=== PATIENT | male | born 1960 | race Caucasian/White ===

== ENCOUNTER 2021-08-19 14:58 | Outpatient (CLI) | payer MEDICARE, SELFPAY ==
[2021-08-19 15:50] LABS: Anion Gap 16.2 (5-19); Blood Urea Nitrogen 33 mg/dL (8-23); Calcium 8.7 mg/dL (8.5-10.5); Carbon Dioxide 26 mmol/L (22-29); Chloride 92 mmol/L (98-107); Glomerular Filtration Rate 38.7 mL/min (90-130); Glucose 293 mg/dL (65-115); Osmolality Calculated 288 mOsm/kg (285-295); Potassium 4.2 mmol/L (3.5-5.1); Sodium 130 mmol/L (136-145)
== END 2021-08-19 14:59 | disposition home or self-care (01) ==
PROVIDERS: Visit Provider Community Health Worker
DX: N18.30 Chronic kidney disease, stage 3 unspecified (principal)
CPT/HCPCS: 80048

== ENCOUNTER → 2023-02-26 07:51 | Outpatient (BNVA) | payer MEDICARE, SELFPAY | PROVIDERS: Visit Provider Podiatrist Foot & Ankle Surgery | DX: L60.3 Nail dystrophy (principal); E11.42 Type 2 diabetes mellitus with diabetic polyneuropathy; Z79.4 Long term (current) use of insulin; L97.511 Non-pressure chronic ulcer of other part of right foot limited to breakdown of skin; E11.621 Type 2 diabetes mellitus with foot ulcer | CPT/HCPCS: 11721; 99203 ==

== ENCOUNTER 2023-05-25 00:54 | Emergency (ER) | payer MEDICARE, SELFPAY ==
[2023-05-25 00:57] VITALS: BP 125/60; PULSE 56; RESP 16; TEMP 36.4; O2SAT 100; BMI 39.8
--- NOTE | 2023-05-25 01:03 | ECG_ITS ---
[facility] Test Date: 2023-05-25 Pat Name: Olvin Conrad Department: Room: Gender: Male Merchandising Director: : 1960 Requested By: Candido Soto Order Number: [id number] Donte MD: Cecelia Olson M.D. Measurements Intervals [place] Rate: 52 P: 50 SD: 214 QRS: 12 QRSD: 103 T: 34 QT: 447 QTc: 418 Interpretive Statements SINUS BRADYCARDIA WITH FIRST DEGREE AV BLOCK Compared to ECG 07/28/2015 01:16:52 First degree AV block now present Sinus rhythm no longer present Intraventricular conduction delay no longer present Left ventricular hypertrophy no longer present Electronically Signed On 05-25-2023 16:31:07 STATE DIRECTOR by Cecelia Olson M.D. [id number]
--- NOTE | 2023-05-25 01:09 | XRR_ITS ---
PROCEDURE INFORMATION: Exam: XR Chest Exam date and time: 05/25/2023 1:24 AM Age: 62 years old Clinical indication: Other: HTN; Additional info: Neuro symptoms, HTN TECHNIQUE: Imaging protocol: Radiologic exam of the chest. Views: 1 view. COMPARISON: No relevant prior studies available. FINDINGS: Lungs: Unremarkable. No consolidation. Pleural spaces: Unremarkable. No pleural effusion. No pneumothorax. Heart/Mediastinum: The heart size is not well assessed. Bones/joints: Unremarkable. XR/XR chest 1V portable [id number] IMPRESSION: No acute findings.
--- NOTE | 2023-05-25 01:09 | CTR_ITS ---
PROCEDURE INFORMATION: Exam: CT Head Without Contrast Exam date and time: 05/25/2023 1:17 AM Age: 62 years old Clinical indication: Weakness, extremity and weakness, facial; Left; Additional info: Left side facial and arm/hand numbness TECHNIQUE: Imaging protocol: Computed tomography of the head without contrast. Radiation optimization: All CT scans at this facility use at least one of these dose optimization techniques: automated exposure control; mA and/or kV adjustment per patient size (includes targeted exams where dose is matched to clinical indication); or iterative reconstruction. COMPARISON: No relevant prior studies available. RADIATION DOSE METRICS: Total DLP (mGy-cm): 1144.78 FINDINGS: Brain: Mildly scattered periventricular white matter hypodensities are identified. There is no evidence of acute parenchymal hemorrhage, extra-axial collection, or acute infarction. There is no mass effect, midline shift, or downward herniation. Cerebral ventricles: No ventriculomegaly. Paranasal sinuses: There is [id number] paranasal sinus disease. Mastoid air cells: Visualized mastoid air cells are well aerated. Orbital cavities: There is dislocation of the left lens of unknown chronicity. Bones/joints: Unremarkable. No acute fracture. Soft tissues: Unremarkable. CT/CT head wo con* [id number] IMPRESSION: 1. No evidence of acute intracranial process. 2. Mildly scattered white matter hypodensities. Differential considerations include chronic microvascular ischemic change, demyelinating disease, or gliosis from infectious/inflammatory source. 3. Dislocated left lens of unknown chronicity.
[2023-05-25 01:22] LABS: Basophils % 0.8 %; Eosinophils # 0.2 10^3/uL (0.0-0.8); Eosinophils % 4.4 %; Hematocrit 37.9 % (37-53); Lymphocytes # 0.6 10^3/uL (0.8-4.8); Mean Corpuscular Hemoglobin 28.5 pg (27-33); Mean Corpuscular Volume 86.3 fl (82-101); Monocytes # 0.5 10^3/uL (0.2-0.9); Neutrophils # 3.63 10^3/uL (1.8-7.7); Neutrophils % 72.4 %; Nucleated Red Blood Cells % 0 %; Platelet Count 233 10^3/cmm (157-399); Red Blood Count 4.39 10^6/uL (3.85-5.65); White Blood Count 5.01 10^3/uL (3.29-11.43)
--- NOTE | 2023-05-25 01:39 | ED_ITS ---
HPI - Neuro Symptoms/Deficit 2 General: Chief Complaint: Neuro Symptoms/Deficit Stated Complaint: possible stroke Time Seen by Provider: 05/25/23 01:10 History of Present Illness: Presents to the ER by private vehicle with complaints of worsened left-sided facial numbness that radiates down into his left arm and left hand and upper part of his left lateral chest wall. Patient said some these areas are normally numb and have been numb for 15 years since a botched dental extraction he has seen neurologist and had [facility] surgery for these. But when he gets the worst he comes in to be evaluated for potential stroke. Patient says he is been over at [facility] probably 10 or 15 times for the exact same thing and they usually states inflammation and tell him to go home and take a couple aspirin. Patient stated the numbness worsened around 4 PM today. Patient is on blood thinners. Patient has no localizing weakness. Patient says this is exactly the same as it has been multiple times in the past when has worsened. Review of Systems 2 General: Reports: 10 or more systems reviewed and unremarkable except in HPI and below Physical Exam 2 Const: COMMON NORMALS: no acute distress, average body habitus, patient oriented x3, no limitations, healthy appearing, alert and well nourished HENMT: COMMON NORMALS: normocephalic, atraumatic, hearing grossly normal bilaterally, external ears normal, Normal external nose present and moist oral mucous membranes HEAD & SCALP: normocephalic and atraumatic NOSE: Normal external nose present EXTERNAL EAR: Yes external ears normal Eye: OTHER: Patient is blind in his left eye Neck/C-Spine: COMMON NORMALS: full ROM, no lymphadenopathy, supple, no meningeal signs, no JVD and Thyroid normal THYROID: Thyroid normal Chest: COMMONS NORMALS: normal inspection of the chest and normal palpation of entire chest wall Resp: COMMON NORMALS: normal respiratory effort, No retractions, No use of accessory muscles and clear to auscultation bilaterally AUSCULTATION: clear to auscultation bilaterally Cardio: COMMON NORMALS: no JVD, regular rate, regular rhythm, S1 normal heart sound present, S2 normal heart sound present, No gallops present (Cardio), No clicks present (Cardio), No murmurs present (Cardio) and No rub (Cardio) R ATE: regular rate RHYTHM: regular rhythm HEART SOUNDS: S1 normal heart sound present and S2 normal heart sound present GI: COMMON NORMALS: Normal to inspection, nondistended, normoactive bowel sounds present, Soft to palpation, non-tender, No hepatosplenomegaly present and no masses PALPATION: Yes Soft to palpation and Yes No hepatosplenomegaly present Neuro: COMMON NORMALS: patient oriented x3 SENSORIUM/ORIENTATION: Yes alert MENINGEAL SIGNS: Yes no meningeal signs Course 2 Vital Signs: Vital signs: Vital Signs Temperature 97.6 F 05/25/23 00:57 Pulse Rate 56 L 05/25/23 00:57 Respiratory Rate 16 05/25/23 00:57 Blood Pressure 125/60 05/25/23 00:57 Pulse Oximetry 100 05/25/23 00:57 Oxygen Delivery Me thod Room Air 05/25/23 00:57 MDM - Neuro Symptoms/Deficit Medical Decision Making Patient presents to the ER with complaints of worsening left facial left upper extremity and left chest numbness. Patient was worked up in a strokelike fashion. Patient BUN/creatinine was elevated at 32 and 1.8 but this is chronic for him. Chest x-ray and head CT was negative for acute intracranial process and neck no acute findings. Patient will be discharged home with diagnosis of paresthesias. Patient should follow-up with his PCP and/or neurologist within next 7 to 10 days or return to the ER if things worsen Differential Diagnosis Unlikely carpal tunnel syndrome, convulsions, delirium, subarachnoid hemorrhage, peripheral neuropathy, cerebrovascular accident, multiple sclerosis or transient cerebral ischemia Medical Records I reviewed the patient's medical records. Lab Data I reviewed the patient's lab results. 05/25/23 01:15 05/25/23 01:15 Radiology Impressions Chest X-Ray 05/25/23 01:09 IMPRESSION: No acute findings. Head CT 05/25/23 01:09 IMPRESSION: 1. No evidence of acute intracranial process. 2. Mildly scattered white matter hypodensities. Differential considerations include chronic microvascular ischemic change, demyelinating disease, or gliosis from infectious/inflammatory source. 3. Dislocated left lens of unknown chronicity. Laboratory Results WBC 5.01 10^3/uL (3.29-11.43) 05/25/23 01:15 RBC 4.39 10^6/uL (3.85-5.65) 05/25/23 01:15 Hgb 12.50 g/dL (11.27-16.99) 05/25/23 01:15 Hct 37.9 % (37-53) 05/25/23 01:15 MCV 86.3 fl (82-101) 05/25/23 01:15 MCH 28.5 pg (27-33) 05/25/23 01:15 MCHC 33.0 g/dL (30-55) 05/25/23 01:15 RDW 13.0 % (12.1-15.1) 05/25/23 01:15 Plt Count 233 10^3/cmm (157-399) 05/25/23 01:15 MPV 9.0 fL (7.4-10.4) 05/25/23 01:15 Neut % (Auto) 72.4 % 05/25/23 01:15 Lymph % (Auto) 12.0 % 05/25/23 01:15 [place] % (Auto) 10.0 % 05/25/23 01:15 Eos % (Auto) 4.4 % 05/25/23 01:15 Baso % (Auto) 0.8 % 05/25/23 01:15 Neut # (Auto) 3.63 10^3/uL (1.8-7.7) 05/25/23 01:15 Lymph # (Auto) 0.6 10^3/uL (0.8-4.8) L 05/25/23 01:15 [place] # (Auto) 0.5 10^3/uL (0.2-0.9) 05/25/23 01:15 Eos # (Auto) 0.2 10^3/uL (0.0-0.8) 05/25/23 01:15 Baso # (Auto) 0.0 10^3/uL (0.0-0.1) 05/25/23 01:15 Nucleated RBC % (auto) 0 % 05/25/23 01:15 Nucleated RBCs # 0.0 /100WBC 05/25/23 01:15 Sodium 138 mmol/L (136-145) 05/25/23 01:15 Potassium 4.5 mmol/L (3.5-5.1) 05/25/23 01:15 Chloride 100 mmol/L (98-107) 05/25/23 01:15 Carbon Dioxide 27 mmol/L (22-29) 05/25/23 01:15 Anion Gap 15.5 (5-19) 05/25/23 01:15 BUN 32 mg/dL (8-23) H 05/25/23 01:15 Creatinine 1.8 mg/dL (0.7-1.2) H 05/25/23 01:15 GFR Calculation 38.4 mL/min (90-130) L 05/25/23 01:15 Glucose 195 mg/dL (65-115) H 05/25/23 01:15 Calculated Osmolality 298 mOsm/kg (285-295) H 05/25/23 01:15 Calcium 9.9 mg/dL (8.5-10.5) 05/25/23 01:15 Magnesium 2.0 mg/dL (1.7-2.3) 05/25/23 01:15 Total Bilirubin 0.3 mg/dL (0.15-1.2) 05/25/23 01:15 AST 16 U/L (0-40) 05/25/23 01:15 ALT 15 U/L (0-41) 05/25/23 01:15 Alkaline Phosphatase 97 U/L (40-130) 05/25/23 01:15 C-Reactive Protein 3.0 mg/L (0.0-4.9) 05/25/23 01:15 NT-Pro-B Natriuret Pep 212 pg/mL (0-125) H 05/25/23 01:15 Total Protein 7.3 g/dL (6.6-8.7) 05/25/23 01:15 Albumin 4.2 g/dL (3.5-5.2) 05/25/23 01:15 Globulin 3.1 g/dL (1.3-4.6) 05/25/23 01:15 TSH 1.89 uIU/mL (0.27-4.20) 05/25/23 01:15 All radiology interpretation(s) finalized by discharge EKG Data EKG 1: I personally reviewed and interpreted this EKG as follows: EKG interpretation date: 05/25/23 EKG interpretation time: 01:03 Prior EKG tracings: not available for review Interpretation: EKG showed ventricular rate 52 beats minute, OR interval 214, QRS duration 103, QTc of 427, sinus bradycardia with first-degree AV block Discharge Plan Discharge Patient Disposition: Home Clinical Impression: Paresthesia Condition: Stable Prescriptions: No Action hydrocodone-acetaminophen 7.5-325 mg tablet PO lisinopril 20 mg tablet PO diltiazem HCl 90 mg tablet PO (DME) pen needle, diabetic [Easy Touch] 31 gauge x 1/4 needle See Rx Instructions .ROUTE .MEDSUPPLY Qty: 100 Rx Instructions: As directed tamsulosin 0.4 mg capsule PO trazodone 50 mg tablet PO gabapentin 300 mg capsule PO glipizide 5 mg tablet PO furosemide 20 mg tablet PO cetirizine 10 mg tablet PO lovastatin 20 mg tablet PO (DME) pen needle, diabetic 31 gauge x 15/64 needle See Rx Instructions .ROUTE .MEDSUPPLY Qty: 100 Rx Instructions: As directed insulin glargine [Lantus Solostar U-100 Insulin] 100 unit/mL (3 mL) insulin pen SUBCUT mupirocin 2 % ointment 1 applic topical BID Qty: 15 0RF Discharge Orders: Discharge ED (Routine); Ordered 05/25/23 Ordered By: Candido Soto Referrals: Zaheer Whitney [Primary Care Provider] - 1 week Patient Instructions: Paresthesia (ED) Activity Restrictions/Additional Instructions: All of your workup for stroke was negative. This is worsening of your normal numbness and tingling. Please follow-up with your family practice physician or neurologist within the next 7 to 10 days for further evaluation and treatment. If this worsens please feel free to return to the ER. Coding Level of Care Code ED Infection Control Preventionist for Edgar Toledo
[2023-05-25 01:50] LABS: Alanine Aminotransferase 15 U/L (0-41); Albumin Level 4.2 g/dL (3.5-5.2); Alkaline Phosphatase 97 U/L (40-130); Anion Gap 15.5 (5-19); Aspartate Amino Transferase 16 U/L (0-40); Blood Urea Nitrogen 32 mg/dL (8-23); Calcium 9.9 mg/dL (8.5-10.5); Carbon Dioxide 27 mmol/L (22-29); Chloride 100 mmol/L (98-107); Globulin 3.1 g/dL (1.3-4.6); Glomerular Filtration Rate 38.4 mL/min (90-130); Glucose 195 mg/dL (65-115); NT Pro B Type Natriuretic Pept 212 pg/mL (0-125); Osmolality Calculated 298 mOsm/kg (285-295); Potassium 4.5 mmol/L (3.5-5.1); Sodium 138 mmol/L (136-145); Thyroid Stimulating Hormone 1.89 uIU/mL (0.27-4.20); Total Bilirubin 0.3 mg/dL (0.15-1.2); Total Protein 7.3 g/dL (6.6-8.7)
[2023-05-25 04:53] VITALS: BP 125/60; PULSE 54; RESP 18; O2SAT 100
== END 2023-05-25 04:54 | disposition home or self-care (01) ==
PROVIDERS: Emergency Provider Emergency Medicine
DX: R20.2 Paresthesia of skin (principal); Z79.4 Long term (current) use of insulin; Z79.84 Long term (current) use of oral hypoglycemic drugs
CPT/HCPCS: 70450; 71045; 80053; 83735; 83880; 84443; 85025; 86140; 93005; 99285

== ENCOUNTER → 2023-06-12 08:01 | Outpatient (BNVA) | payer MEDICARE, SELFPAY | PROVIDERS: Visit Provider Podiatrist Foot & Ankle Surgery | DX: L60.3 Nail dystrophy (principal); E11.42 Type 2 diabetes mellitus with diabetic polyneuropathy; Z79.4 Long term (current) use of insulin | CPT/HCPCS: 11721 ==

== ENCOUNTER → 2023-09-11 10:47 | Outpatient (BNVA) | payer MEDICARE, SELFPAY | PROVIDERS: Visit Provider Podiatrist Foot & Ankle Surgery | DX: L60.3 Nail dystrophy (principal); E11.42 Type 2 diabetes mellitus with diabetic polyneuropathy; Z79.4 Long term (current) use of insulin | CPT/HCPCS: 11721 ==

== ENCOUNTER → 2024-06-03 14:02 | Outpatient (BNVA) | payer MEDICARE, SELFPAY | PROVIDERS: Visit Provider Podiatrist Foot & Ankle Surgery | DX: L60.3 Nail dystrophy (principal); E11.42 Type 2 diabetes mellitus with diabetic polyneuropathy; I73.9 Peripheral vascular disease, unspecified; Z79.4 Long term (current) use of insulin | CPT/HCPCS: 11721 ==

== ENCOUNTER → 2024-08-26 08:03 | Outpatient (BNVA) | payer MEDICARE, SELFPAY | PROVIDERS: Visit Provider Podiatrist Foot & Ankle Surgery | DX: E11.42 Type 2 diabetes mellitus with diabetic polyneuropathy (principal); L60.3 Nail dystrophy; I73.9 Peripheral vascular disease, unspecified; Z79.4 Long term (current) use of insulin | CPT/HCPCS: 11721 ==

== ENCOUNTER → 2025-05-04 12:43 | Outpatient (BNVA) | payer MEDICARE, SELFPAY | PROVIDERS: Visit Provider Podiatrist Foot & Ankle Surgery | DX: E11.42 Type 2 diabetes mellitus with diabetic polyneuropathy (principal); L60.3 Nail dystrophy; L60.8 Other nail disorders; I73.9 Peripheral vascular disease, unspecified; Z79.4 Long term (current) use of insulin | CPT/HCPCS: 11721 ==